=== PATIENT | male | born 1980 | race Caucasian/White ===

== ENCOUNTER 2019-06-07 09:48 | Emergency (ER) | payer MEDICAID ==
[~2019-06-07] VITALS: Ht 182.9 cm; Wt 92.3 kg
[2019-06-07 10:05] VITALS: BP 137/86
== END 2019-06-07 10:42 | disposition home or self-care (01) ==
LOC: ED 10:30
DX: S01.511A Laceration without foreign body of lip, initial encounter (principal); F17.200 Nicotine dependence, unspecified, uncomplicated; Y04.8XXA Assault by other bodily force, initial encounter; Y93.89 Activity, other specified; Y92.89 Other specified places as the place of occurrence of the external cause; Y99.8 Other external cause status
CPT/HCPCS: 99283